=== PATIENT | female | born 1995 | race Caucasian/White ===

== ENCOUNTER 2017-10-01 22:58 | Emergency (ER) | payer MEDICAID ==
[~2017-10-01] VITALS: Ht 165.1 cm; Wt 75.0 kg
[2017-10-02 00:25] VITALS: BP 138/67; PULSE 87; RESP 16; TEMP 98.2; O2SAT 95
[2017-10-02] MEDS ORDERED: BROMSYP PO (01:37)
[2017-10-02] MEDS ORDERED: BENZ100 PO (01:37)
--- NOTE | 2017-10-02 01:40 | PD ---
HPI Chief Complaint: Cold / Flu Symptoms Time Seen by Provider: 01:09 Travel History International Travel<30 days: No Contact w/Intl Traveler<30days: No Traveled to known affect area: No History of Present Illness HPI This is a 22-year-old female presents for evaluation of a cough. Symptoms started 1 week ago. The cough is productive with yellow sputum. Symptoms are unrelieved with lupp-jib-katfghr "allergy medicine." Denies fevers or chills. Endorses tobacco use. No other complaints. PFSH Past Medical History Immunizations Current: Yes Tetanus Vaccination: Unknown Influenza Vaccination: No ?: Unknown LMP: 09/29/17 Social History Alcohol Use: No Tobacco Use: No Substance Use: No Allergies-Medications (Allergen,Severity, Reaction): Coded Allergies: No Known Allergies (Unverified , 10/02/17) Reported Meds & Prescriptions Reported Meds & Active Scripts Active Bromfed DM Liq (Kgeskiketyhcdox-Zmmtwdjqrghaqcm-FT Liq) 30-2-10 Mg/5 Ml Syrp 5 Ml PO Q6H PRN Tessalon Perles (Benzonatate) 100 Mg Cap 200 Mg PO TID PRN Review of Systems Except as stated in HPI: all other systems reviewed are Neg Physical Exam Narrative GENERAL: Well-nourished female no acute distress SKIN: Warm and dry. HEAD: Atraumatic. Normocephalic. EYES: Pupils equal and round. No scleral icterus. No injection or drainage. ENT: No nasal bleeding or discharge. Mucous membranes pink and moist. NECK: Trachea midline. No JVD. CARDIOVASCULAR: Regular rate and rhythm. No murmur appreciated. RESPIRATORY: No accessory muscle use. Clear to auscultation. Breath sounds equal bilaterally. Data Data Last Documented VS Vital Signs Date Time Temp Pulse Resp B/P (MAP) Pulse Ox O2 Delivery O2 Flow Rate FiO2 10/02/17 00:25 98.2 87 16 138/67 (90) 95 MDM Medical Decision Making Medical Screen Exam Complete: Yes Emergency Medical Condition: Yes Medical Record Reviewed: Yes Differential Diagnosis Bronchitis, pneumonia, reactive airway disease, sinusitis Narrative Course The patient appears to have a viral bronchitis. She will be discharged with antitussive medication. Diagnosis Primary Impression: Bronchitis Additional Instructions: Medication as prescribed, avoid tobacco products, return for any emergent medical conditions. Med/Other Pt SpecificInfo: Prescription(s) given Scripts Yvwxsaihotrlwpm-Xgtohfbjwhbascb-AZ Liq (Bromfed DM Liq) 30-2-10 Mg/5 Ml Syrp 5 ML PO Q6H Y for COUGH AND/OR COLD SYMPTOMS, #1 BOTTLE 0 Refills Prov: Nicki Odom MD 10/02/17 Benzonatate (Tessalon Perles) 100 Mg Cap 200 MG PO TID Y for COUGH, #30 CAP 0 Refills Prov: Nicki Odom MD 10/02/17 Disposition: 01 DISCHARGE HOME Condition: Stable Dada Metcalf Oct 02, 2017 01:40
== END 2017-10-02 01:54 | disposition home or self-care (01) ==
LOC: NEPD 22:58
DX: J40 Bronchitis, not specified as acute or chronic (principal); Z72.0 Tobacco use
CPT/HCPCS: 99283

== ENCOUNTER 2017-11-28 04:50 | Emergency (ER) | payer MEDICAID ==
[~2017-11-28] VITALS: Ht 170.2 cm; Wt 105.0 kg
[~2017-11-28 04:50] MED LIST: BENZ100 PO; BROMSYP PO
[2017-11-28 04:59] VITALS: BP 126/84; PULSE 80; RESP 18; TEMP 98.5; O2SAT 97
[2017-11-28] MEDS ORDERED: BACT800T5 PO (05:23)
--- NOTE | 2017-11-28 05:27 | PD ---
HPI Chief Complaint: Skin Problem Time Seen by Provider: 05:22 Travel History International Travel<30 days: No Contact w/Intl Traveler<30days: No Traveled to known affect area: No History of Present Illness HPI 22-year-old white female presents emergency department with an abscess to her left groin over the past week. She states that she has had a skin infection in the past. She denies any fever chills. Pain is mild to moderate. No alleviating factors. No exacerbating factors. PFSH Past Medical History Medical History: Denies Significant Hx Diminished Hearing: No Immunizations Current: Yes ?: Not LMP: depo Past Surgical History Tonsillectomy: Yes Social History Alcohol Use: No Tobacco Use: Yes Substance Use: No Allergies-Medications (Allergen,Severity, Reaction): Coded Allergies: No Known Allergies (Unverified , 11/28/17) Reported Meds & Prescriptions Reported Meds & Active Scripts Active Bromfed DM Liq (Tkguowowvsugjkt-Etronapfoutbrrq-ZT Liq) 30-2-10 Mg/5 Ml Syrp 5 Ml PO Q6H PRN Tessalon Perles (Benzonatate) 100 Mg Cap 200 Mg PO TID PRN Review of Systems General / Constitutional: No: Fever Eyes: No: Visual changes HENT: No: Headaches Cardiovascular: No: Chest Pain or Discomfort Respiratory: No: Shortness of Breath Gastrointestinal: No: Abdominal Pain Genitourinary: No: Dysuria Musculoskeletal: No: Pain Skin: Positive Lumps, No Rash Neurologic: No: Weakness Psychiatric: No: Depression Endocrine: No: Polydipsia Hematologic/Lymphatic: No: Easy Bruising Physical Exam Narrative GENERAL: Well-developed, well-nourished in no acute distress. Nontoxic appearing. HEAD: Normocephalic, atraumatic. EYES: Pupils equal round and reactive. Extraocular motions intact. No scleral icterus. No injection or drainage. ENT: TMs clear without erythema. The external auditory canals clear. Nose: clear . Posterior pharynx is pink and moist. No tonsillar edema or exudate. Uvula midline. Airway patent. NECK: Trachea midline.Supple, nontender, moves head freely. No central bony tenderness or spasm. CARDIOVASCULAR: Regular rate and rhythm without murmurs, gallops, or rubs. RESPIRATORY: Clear to auscultation. Breath sounds equal bilaterally. No wheezes , rales, or rhonchi. GASTROINTESTINAL: Abdomen soft, non-tender, nondistended. No hepato-splenomegaly , or palpable masses. No guarding. EXTREMITIES: No clubbing, cyanosis, or edema. No joint tenderness, effusion, or edema noted. BACK: Nontender without deformity or crepitance. No flank tenderness. Skin: Patient has a 1.5 cm pointing abscess to the left groin. Positive erythema, warmth and tenderness. Data Data Last Documented VS Vital Signs Date Time Temp Pulse Resp B/P (MAP) Pulse Ox O2 Delivery O2 Flow Rate FiO2 11/28/17 04:59 98.5 80 18 126/84 (98) 97 Orders Orders Ed Discharge Order (11/28/17 05:22) MDM Medical Decision Making Medical Screen Exam Complete: Yes Emergency Medical Condition: Yes Medical Record Reviewed: Yes Differential Diagnosis MDM: High Differential diagnoses: Abscess, folliculitis, cellulitis, lymphangitis, abrasion, contact dermatitis Narrative Course Patient has an abscess of the left groin which has been incised and drained. Procedures Procedure Narrative I&D abscess: After the risks and benefits were discussed the following procedure was performed. The skin is prepped and draped in the usual sterile fashion using Betadine. A 10 blade scalpel is used to make a 1 centimeter central incision. Perulant material is expressed A clean dressing is applied. The patient tolerated the procedure well. There was no complications. Follow-up instructions were given to the patient. Diagnosis Primary Impression: Abscess of left groin Patient Instructions: General Instructions Departure Forms: Tests/Procedures Additional Instructions: Rest. Elevation. keep clean and dry. Warm compresses Daily wound care with soap, water and Neosporin. Three Advil every 6 hours. Bactrim DS. Follow-up with a primary care doctor in one week. Return to the ER for any problems. Med/Other Pt SpecificInfo: Prescription(s) given, Wound Care Scripts Sulfamethoxazole-Trimethoprim (Bactrim DS) 800-160 Mg Tab 1 TAB PO BID for Infection, #14 TAB 0 Refills Prov: Allison Chase MD 11/28/17 Disposition: 01 DISCHARGE HOME Condition: Stable Raza Larios November 28, 2017 05:27
== END 2017-11-28 06:09 | disposition home or self-care (01) ==
LOC: NEPD 04:50
DX: L02.214 Cutaneous abscess of groin (principal)
CPT/HCPCS: 10060